=== PATIENT | male | born 1985 | race Caucasian/White ===

== ENCOUNTER 2017-08-23 09:56 | Emergency (ER) | payer BC ==
[~2017-08-23] VITALS: Ht 167.6 cm; Wt 56.7 kg
[~2017-08-23 09:56] MED LIST: CIPR500T4 PO; HYDR-3816 PO
--- NOTE | 2017-08-23 10:44 | Diagnostic Imaging Report ---
PA and lateral views of the chest Indication: Chest pain Findings: The lungs are clear. The heart size is normal. There is no effusion or pneumothorax The mediastinum and indio appear unremarkable. Impression: Unremarkable study. Dictated by: Dictated on workstation # [id number]
--- NOTE | 2017-08-23 10:47 | ED Chest Pain ---
General Chief Complaint: Chest Pain Stated Complaint: CP Nursing Triage Note: PT CO OF CHEST PAIN STARTED LAST PM STATES HURTS WHEN BREATHING HAS TAKEN NOTHING FOR PAIN. DENIES N/V OR SOA Nursing Sepsis Screen: No Definite Risk Source: patient Exam Limitations: no limitations History of Present Illness Time seen by provider: 10:25 Initial Comments This 31-year-old gentleman presents to emergency room with pain in the left central upper chest that radiates to his back and down his arm. He had a similar episode a week ago when he was traveling in [place]. Pain resolved but returned last night. It has worsened this morning. He has not taken any medications for the pain. Pain is definitely worse with inspiration and palpation. He feels a little short of breath. Patient is a smoker. 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 He has not been following with an oncologist because he "got busy". He denies any fever, cough, or lower extremity symptoms. Allergies and Home Medications Allergies Coded Allergies: No Known Drug Allergies (Unverified , 07/14/14) Review of Systems Constitutional: no symptoms reported EENTM: No Symptoms Reported Respiratory: See HPI Cardiovascular: No Symptoms Reported Gastrointestinal: No Symptoms Reported Genitourinary: No Symptoms Reported Musculoskeletal: see HPI Skin: no symptoms reported Psychiatric/Neurological: No Symptoms Reported Endocrine: No Symptoms Reported Hematologic/Lymphatic: No Symptoms Reported Past [id number] Hx Patient Social History Alcohol Use: Denies Use Recreational Drug Use: No Smoking Status: Current Everyday Smoker Type Used: Smokeless Tobacco Recent Foreign Travel: No Contact w/Someone Who Travel: No Recent Infectious Disease Expo: No Recent Hopitalizations: No Physical Abuse: No Sexual Abuse: No Surgeries History of Surgeries: Yes (NECK SURG ( L parotid gland)) Respiratory History of Respiratory Disorde: No Cardiovascular History of Cardiac Disorders: No Neurological History of Neurological Disord: No Gastrointestinal History of Gastrointestinal Di: No Musculoskeletal History of Musculoskeletal Dis: No Endocrine History of Endocrine Disorders: No HEENT History of HEENT Disorders: No Cancer History of Cancer: Yes (parotid gland cancer) Psychosocial History of Psychiatric Problem: Yes Behavioral Health Disorders: Suicide Attempts, Depression Suicide Risk Score: 0 Family Medical History Significant Family History: No Pertinent Family Hx Physical Exam Vital Signs Vital Sign - Last 12Hours 08/23/17 10:05 Temp 98.1 Pulse 101 Resp 10 B/P (MAP) 117/89 Pulse Ox 98 O2 Delivery Room Air Capillary Refill : Less Than 3 Seconds General Appearance: No Apparent Distress, WD/WN HEENT: PERRL/EOMI, Normal ENT Inspection, Other (postsurgical changes to the left neck) Respiratory: Lungs Clear, Normal Breath Sounds, No Accessory Muscle Use, No Respiratory Distress, Other (splinting respirations. Tenderness in the lateral pectoral region. Pain with range of motion of the left arm.) Cardiovascular: Regular Rate, Rhythm, No Edema, No Murmur Gastrointestinal: Normal Bowel Sounds, Non Tender, Soft Extremity: Normal Inspection, No Calf Tenderness, No Pedal Edema, Other ( negative You) Neurologic/Psychiatric: Alert, Oriented x3, No Motor/Sensory Deficits, Normal Mood/Affect, product marketing coordinator II-XII Norm as Tested Skin: Normal Color, Warm/Dry Progress/Results/Core Measures Results/Orders My Orders Orders - YOSELIN ESCALONA MD Chest Pa/Lat (2 View) (08/23/17 10:34) Vital Signs/I&O Vital Sign - Last 12Hours 08/23/17 08/23/17 10:05 10:05 Temp 98.1 Pulse 101 Resp 10 B/P (MAP) 117/89 Pulse Ox 98 O2 Delivery Room Air Blood Pressure Mean: 98 Progress Note : Progress Note Patient's pain was markedly reproducible with palpation of the lateral pectoral region. He was offered a Toradol injection but declined. Diagnostic Imaging Diagonstic Imaging: Xray Plain Films/CT/US/NM/MRI: chest Comments Chest x-ray viewed by me and report reviewed. See report below: NAME: DRAKE [facility]ENDANO [facility] REC#: [id number] PT STATUS: REG ER : 1985 PHYSICIAN: YOSELIN ESCALONA MD ADMIT DATE: 08/23/17/ER Signed Date of Exam:08/23/17 CHEST PA/LAT (2 VIEW) PA and lateral views of the chest Indication: Chest pain Findings: The lungs are clear. The heart size is normal. There is no effusion or pneumothorax The mediastinum and indio appear unremarkable. Impression: Unremarkable study. Dictated by: Dictated on workstation # [id number] Dict: 08/23/17 1043 Trans: 08/23/17 1044 [facility] [id number] Interpreted by: RAMESH WILSON MD Electronically signed by: RAMESH WILSON MD 08/23/17 1044 Departure Impression Impression: Primary Impression: Chest wall pain Disposition: 01 HOME, SELF-CARE Condition: Improved Departure-Patient Inst. Referrals: SHIRA DEL ROSARIO DO (PCP/Family) Primary Care Physician Patient Instructions: Chest Pain That Is Not Caused by the Heart (DC) Add. Discharge Instructions: You may take ibuprofen up to 800 mg every 8 hours as needed for pain. Take with food or milk to avoid stomach irritation. Add Tylenol (acetaminophen) up to 1000 mg every 6 hours as needed for additional pain relief. Your pain should gradually improve over the next couple of days. If you do not have complete relief from your pain within one week, please return to care for further evaluation. Return to the emergency room if symptoms worsen despite treatment. Please be sure you're following with a primary care provider and an oncologist for surveillance after your cancer treatment. All discharge instructions reviewed with patient and/or family. Voiced understanding. YOSELIN ESCALONA MD Aug 23, 2017 10:47
[2017-08-23 11:03] VITALS: BP 116/82
== END 2017-08-23 11:03 | disposition home or self-care (01) ==
LOC: EDUNIT# 09:56 → ER 09:59
DX: R07.89 Other chest pain (principal); F32.9 Major depressive disorder, single episode, unspecified; F17.200 Nicotine dependence, unspecified, uncomplicated; Z91.15 Patient's noncompliance with renal dialysis; Z85.858 Personal history of malignant neoplasm of other endocrine glands
CPT/HCPCS: 71020; 99285